=== PATIENT | male | born 1985 | race Caucasian/White ===

== ENCOUNTER 2016-06-15 20:22 | Emergency (ER) | payer MEDICAID ==
[~2016-06-15] VITALS: Ht 188 cm; Wt 105.2 kg
[~2016-06-15 20:22] MED LIST: CARD120T4 PO; HYDR-3533 PO; LACO100 PO; METH750T2 PO; OMEP20TA39 PO; PAXI20TA26 PO; PAXI30TA7 PO; PROT40TA PO; XANA0.5T PO; ZOLP10TA3 PO
[2016-06-15 20:46] VITALS: BP_SYST 130; BP_DIAS 0; BP_DIAS 88; PULSE 112; RESP 20; TEMP 98.4; O2SAT 99
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
[2016-06-15] MEDS ORDERED: SODIUM CHLOR 0.9% 1000 ML INJ 1,000 ML IV ONE (23:00)
[2016-06-15] MEDS ORDERED: ACETAMINOPHEN 500 MG CPLT PO ONE (23:00)
[2016-06-15] MEDS ORDERED: DICYCLOMINE HCL 10 MG CAP PO ONE (23:00)
[2016-06-15 23:15] LABS: AUTOMATED NEUTROPHIL # 10.3 TH/MM3 (1.8-7.7); BASOPHIL # 0.1 TH/MM3 (0-0.2); BASOPHIL % 0.6 % (0.0-2.0); EOSINOPHIL # 0.3 TH/MM3 (0-0.4); EOSINOPHIL % 2.1 % (0.0-4.0); HEMATOCRIT 44.5 % (39.0-51.0); HEMO FLAGS DIFF FINAL; LYMPH % 26.7 % (9.0-44.0); LYMPHOCYTE # 4.1 TH/MM3 (1.0-4.8); MEAN CELL VOLUME 90.4 FL (80.0-100.0); MEAN CORPUSCULAR HEMOGLOBIN 30.6 PG (27.0-34.0); MEAN CORPUSCULAR HGB CONC 33.8 % (32.0-36.0); MONO % 4.5 % (0.0-8.0); NEUT % 66.1 % (16.0-70.0); PLATELET COUNT 348 TH/MM3 (150-450); RED BLOOD COUNT 4.93 MIL/MM3 (4.50-5.90); RED CELL DISTRIBUTION WIDTH 12.2 % (11.6-17.2); WHITE BLOOD COUNT 15.5 TH/MM3 (4.0-11.0)
[2016-06-15 23:27] LABS: CHLORIDE 109 MEQ/L (98-107); POTASSIUM 3.8 MEQ/L (3.5-5.1); SODIUM (NA) 142 MEQ/L (136-145)
[2016-06-15 23:31] LABS: ANION GAP 8 MEQ/L (5-15); BICARBONATE 24.6 MEQ/L (21.0-32.0); BLOOD UREA NITROGEN 13 MG/DL (7-18)
[2016-06-15 23:34] LABS: ALT (GPT) 33 U/L (12-78); AST (GOT) 14 U/L (15-37); GLOMERULAR FILTRATION RATE 115 ML/MIN (>89)
[2016-06-15 23:36] LABS: TOTAL BILIRUBIN ADULT 0.7 MG/DL (0.2-1.0)
[2016-06-15 23:37] LABS: ALKALINE PHOSPHATASE 64 U/L (45-117)
--- NOTE | 2016-06-15 23:59 | RADHPO ---
EXAM DATE/TIME: 06/15/2016 23:31 [facility] COMPARISON: ABDOMEN FLAT & UPRIGHT, January 19, 2014, 1:00. INDICATIONS : Constipation. Lower abdominal pain. MEDICAL HISTORY : None. SURGICAL HISTORY : None. ENCOUNTER: Initial ACUITY: 4 - 6 days PAIN SCORE: 6/10 LOCATION: Bilateral lower quadrant FINDINGS: Supine view of the abdomen was performed. The abdominal bowel gas pattern is normal. No abnormal ma sses, calcifications, or organomegaly is seen. The osseous structures are unremarkable. Cholecystect alma delia clips overlie the right upper quadrant. CONCLUSION: No acute disease. Virgilio George MD on June 15, 2016 at 23:57 Board Certified Radiologist. This report was verified electronically.
[2016-06-16] MEDS ORDERED: HYDROmorphone HCL PF 1 MG/ML VIAL IV PUSH ONE
[2016-06-16] MEDS ORDERED: PROCHLORPERAZINE INJ 10 MG/2 ML VIAL IVS ONE
[2016-06-16 00:19] VITALS: BP 131/73; PULSE 85; RESP 16; O2SAT 97
[2016-06-16] MEDS ORDERED: IOHEXOL 350 MG/ML 10 ML VIAL (for RAD DIAG) IV ONE (01:06)
--- NOTE | 2016-06-16 01:28 | RADHPO ---
EXAM DATE/TIME: 06/16/2016 00:59 [facility] COMPARISON: CT ABDOMEN & PELVIS W CONTRAST, July 02, 2010, 0:42. INDICATIONS : Bilateral abdominal pain for three weeks. IV CONTRAST: 100 cc Omnipaque 350 (iohexol) IV ORAL CONTRAST: No oral contrast ingested. RADIATION DOSE: 16.51 CTDIvol (mGy) MEDICAL HISTORY : Irritable bowel syndrome. Gastroesophageal reflux disease. Seizures. SURGICAL HISTORY : Cholecystectomy. ENCOUNTER: Initial ACUITY: 3 weeks PAIN SCALE: 5/10 LOCATION: Bilateral abdomen. TECHNIQUE: Volumetric scanning of the abdomen and pelvis was performed. Using automated exposure control and ad justment of the mA and/or kV according to patient size, radiation dose was kept as low as reasonably achievable to obtain optimal diagnostic quality images. FINDINGS: Patient is status post cholecystectomy. No pleural pericardial effusions. Liver, spleen, pancreas, bi lateral adrenal glands, bilateral kidneys are unremarkable. Urinary bladder, prostate, small bowel an d large bowel and stomach are unremarkable. The appendix is normal. No adenopathy or aneurysm. The os seous structures are intact. The lung bases are clear. CONCLUSION: No acute disease. Virgilio George MD on June 16, 2016 at 1:25 Board Certified Radiologist. This report was verified electronically.
[2016-06-16 01:42] VITALS: BP 108/71; PULSE 89; RESP 16; TEMP 98.1; O2SAT 96
[2016-06-16] MEDS ORDERED: BENT20TA PO (03:35)
--- NOTE | 2016-06-16 03:35 | PD ---
Physical Exam Date Seen by Provider: Jun 16, 2016 Time Seen by Provider: 00:20 Narrative accepted in transfer of care Data Data Last Documented VS Vital Signs Date Time Temp Pulse Resp B/P Pulse Ox O2 Delivery O2 Flow Rate FiO2 06/16/16 03:51 82 16 110/68 97 06/16/16 01:42 98.1 Room Air Orders Abdomen, Kub Only (06/15/16 22:53) Complete Blood Count With Diff (06/15/16 22:59) Comprehensive Metabolic Panel (06/15/16 22:59) Lipase (06/15/16 22:59) Sodium Chlor 0.9% 1000 Ml Inj (Ns 1000 M (06/15/16 23:00) Dicyclomine (Bentyl) (06/15/16 23:00) Acetaminophen (Tylenol) (06/15/16 23:00) Prochlorperazine Inj (Compazine Inj) (06/16/16 00:00) Hydromorphone Pf Inj (Dilaudid Pf Inj) (06/16/16 00:00) Ct Abd/Pel W Iv Contrast(Rout) (06/16/16 ) Iohexol 350 Inj (Omnipaque 350 Inj) (06/16/16 01:06) Labs Laboratory Tests Test 06/15/16 23:05 White Blood Count 15.5 TH/MM3 Red Blood Count 4.93 MIL/MM3 Hemoglobin 15.1 GM/DL Hematocrit 44.5 % Mean Corpuscular Volume 90.4 FL Mean Corpuscular Hemoglobin 30.6 PG Mean Corpuscular Hemoglobin 33.8 % Concent Red Cell Distribution Width 12.2 % Platelet Count 348 TH/MM3 Mean Platelet Volume 7.0 FL Neutrophils (%) (Auto) 66.1 % Lymphocytes (%) (Auto) 26.7 % Monocytes (%) (Auto) 4.5 % Eosinophils (%) (Auto) 2.1 % Basophils (%) (Auto) 0.6 % Neutrophils # (Auto) 10.3 TH/MM3 Lymphocytes # (Auto) 4.1 TH/MM3 Monocytes # (Auto) 0.7 TH/MM3 Eosinophils # (Auto) 0.3 TH/MM3 Basophils # (Auto) 0.1 TH/MM3 CBC Comment DIFF FINAL Differential Comment Sodium Level 142 MEQ/L Potassium Level 3.8 MEQ/L Chloride Level 109 MEQ/L Carbon Dioxide Level 24.6 MEQ/L Anion Gap 8 MEQ/L Blood Urea Nitrogen 13 MG/DL Creatinine 0.79 MG/DL Estimat Glomerular Filtration 115 ML/MIN Rate Random Glucose 96 MG/DL Calcium Level 8.6 MG/DL Total Bilirubin 0.7 MG/DL Aspartate Amino Transf 14 U/L (AST/SGOT) Alanine Aminotransferase 33 U/L (ALT/SGPT) Alkaline Phosphatase 64 U/L Total Protein 7.5 GM/DL Albumin 4.1 GM/DL Lipase 147 U/L [facility] Medical Record Reviewed: Yes Supervised Visit with MIREILLE: No Interpretation(s) CBC & BMP Diagram 06/15/16 23:05 Last Impressions Abdomen/Pelvis CT 06/16/16 0000 Signed Impressions: Service Date/Time: Thursday, June 16, 2016 00:59 - CONCLUSION: No acute disease. Virgilio George MD Abdomen X-Ray 06/15/16 2253 Signed Impressions: Service Date/Time: Wednesday, June 15, 2016 23:31 - CONCLUSION: No acute disease. Virgilio George MD Differential Diagnosis please refer to Dr Aburto's dictation Narrative Course accepted in transfer of care from Dr Aburto; pending CT and disposition CT a/p no acute findings --stable for outpatient management Diagnosis Primary Impression: Abdominal pain Qualified Code: R10.84 - Generalized abdominal pain Referrals: [facility] call for appointment Primary Care Physician call for appointment Patient Instructions: General Instructions Additional Instruction: Follow clear liquid diet for next 12-24 hours advance as tolerated to bland/ Dharmesh diet then regular diet Follow-up with primary care provider Follow-up with production shift supervisor Return to the emergency department for any concerns or change in condition Med/Other Pt SpecificInfo: Prescription(s) given Scripts Dicyclomine (Bentyl)20 Mg Tab20 Mg PO Q8HR #10 TAB Ref 0 Prov:Cornelia Laguna MD 06/16/16 Disposition: 01 DISCHARGE HOME Condition: Stable Cornelia Laguna MD Jun 16, 2016 03:35
[2016-06-16 03:51] VITALS: BP 110/68
== END 2016-06-16 03:52 | disposition home or self-care (01) ==
LOC: PHED 20:22
DX: R10.84 Generalized abdominal pain (principal)
CPT/HCPCS: 74000; 74177; 80053; 83690; 85025; 96361; 96374; 96375; 99284; J0780; J1170; J7030; Q9967